=== PATIENT | female | born 1960 | race Caucasian/White ===

== ENCOUNTER 2017-08-17 16:20 | Emergency (ER) | payer BC ==
[~2017-08-17] VITALS: Ht 167.6 cm; Wt 59.9 kg
[2017-08-17 16:25] VITALS: BP 126/60
--- NOTE | 2017-08-17 17:13 | RAD ---
4 view left knee radiographs 08/17/2017 Clinical history: Left knee pain since earlier today after bending over. AP, lateral and oblique and sunrise digital radiographs of the left knee were obtained. Mild to moderate degenerative changes are seen involving all 3 compartments of the left knee. No fracture or dislocation is seen. There is no radiographic evidence of a joint effusion. Impression: Mild to moderate degenerative changes are seen involving the left knee. No fracture or dislocation is seen.
[2017-08-17] MEDS ORDERED: CODEINE (17:33)
[2017-08-17] MEDS ORDERED: TYLENOL (17:33)
--- NOTE | 2017-08-17 17:34 | PHYS DOC ---
Past History Past Medical History: Anxiety, CAD, GERD, High Cholesterol Past Surgical History: Cholecystectomy, , Other Smoking: Cigarettes Alcohol Use: None Drug Use: None Adult General Chief Complaint Chief Complaint: KNEE INJURY HPI HPI 57-year-old female patient with history of bilateral knee surgery complaining of pain in left knee after she twisted her knee and felt a pop in her knee at 10 AM today. Patient states the pain getting worse with bearing weight and bending her knee. Denies other injuries and focal neurodeficit. Review of Systems Review of Systems Constitutional: Denies fever or chills [] Eyes: Denies change in visual acuity, redness, or eye pain [] HENT: Denies nasal congestion or sore throat [] Respiratory: Denies cough or shortness of breath [] Cardiovascular: No additional information not addressed in HPI [] GI: Denies abdominal pain, nausea, vomiting, bloody stools or diarrhea [] : Denies dysuria or hematuria [] Musculoskeletal: Denies back pain, reports joint pain [] Integument: Denies rash or skin lesions [] Neurologic: Denies headache, focal weakness or sensory changes [] Endocrine: Denies polyuria or polydipsia [] All other systems were reviewed and found to be within normal limits, except as documented in this note. Current Medications Current Medications Current Medications Medications (Trade) Dose Ordered Sig/Ryley Start Time Stop Time Status Last Admin Dose Admin Acetaminophen/ Codeine Phosphate (Tylenol/Codeine Soln) 5 ml 1X ONCE 08/17/17 17:30 08/17/17 17:31 UNV Allergies Allergies Allergies Coded Allergies Type Severity Reaction Last Updated Verified No Known Drug Allergies 08/17/17 No Physical Exam Physical Exam Constitutional: Well developed, well nourished,mild distress, non-toxic appearance. [] HENT: Normocephalic, atraumatic, bilateral external ears normal, oropharynx moist, no oral exudates, nose normal. [] Eyes: PERRLA, EOMI, conjunctiva normal, no discharge. [] Neck: Normal range of motion, no tenderness, supple, no stridor. [] Cardiovascular:Heart rate regular rhythm, no murmur [] Lungs & Thorax: Bilateral breath sounds clear to auscultation [] Skin: Warm, dry, no erythema, no rash. [] Back: No tenderness, no CVA tenderness. [] Extremities: No deformity of left knee, mild edema of left knee, limited range of motion because of pain, no neurovascular deficit Neurologic: Alert and oriented X 3, normal motor function, normal sensory function, no focal deficits noted. [] Psychologic: Affect normal, judgement normal, mood normal. [] Current Patient Data Vital Signs Vital Signs Date Time Temp Pulse Resp B/P (MAP) Pulse Ox O2 Delivery O2 Flow Rate FiO2 08/17/17 16:25 98.6 70 16 100 Room Air EKG EKG [] Radiology/Procedures Radiology/Procedures X-ray of knee showed degenerative joint disease without acute fracture or dislocation[] Course & Med Decision Making Course & Med Decision Making Pertinent Imaging studies reviewed. (See chart for details) [Evaluation of patient in ER showed 57-year-old female patient with twisting left knee and felt getting a pop in her knee. Patient did not have fracture or dislocation in x-ray. Patient requesting liquid pain medication. Patient states she has crutches at home. [Plan to apply Johnnie wrap and gave liquid Tylenol with codeine and discharge patient home with diagnosis of knee sprain and instruction to follow up with her primary care physician for further evaluation. Dragon Disclaimer Dragon Disclaimer This electronic medical record was generated, in whole or in part, using a voice recognition dictation system. Departure Departure: Impression: Primary Impression: Degenerative joint disease of knee, left Additional Impression: Tobacco abuse Disposition: HOME, SELF-CARE (At 1740) Condition: IMPROVED Referrals: NEHAL LIZ (PCP) Patient Instructions: Knee Sprain Additional Instructions: Use crutches Apply ice for your knee Use soft knee brace Follow-up with your primary care physician in 3-5 days for further evaluation Scripts [Tylenol/codeine] No Conflict Check 12.5 ML QID Y for PAIN, #180 ML Prov: DELISA ACRE MD 08/17/17 Problem Qualifiers DELISA ARCE MD Aug 17, 2017 17:34
[2017-08-17] MEDS ORDERED: ACETAMINOPHEN/CODEINE 120/12MG 5 ML SOLUTION. PO ONE (17:45)
== END 2017-08-17 17:42 | disposition home or self-care (01) ==
LOC: ER 16:20
DX: M17.12 Unilateral primary osteoarthritis, left knee (principal); E78.00 Pure hypercholesterolemia, unspecified; K21.9 Gastro-esophageal reflux disease without esophagitis; I25.10 Atherosclerotic heart disease of native coronary artery without angina pectoris; F41.9 Anxiety disorder, unspecified; F17.210 Nicotine dependence, cigarettes, uncomplicated; Z98.890 Other specified postprocedural states
CPT/HCPCS: 73564; 99284